=== PATIENT | female | born 1980 | race Caucasian/White ===

== ENCOUNTER 2024-03-08 01:01 | Outpatient (CLI) | payer SELFPAY | END 2024-03-08 23:59 | disposition critical access hospital (66) | LOC: EMS 01:01 | DX: R56.9 Unspecified convulsions (principal) | CPT/HCPCS: A0425; A0427 ==

== ENCOUNTER 2024-03-08 01:12 | Emergency (ER) | payer SELFPAY ==
[2024-03-08] MEDS: levETIRAcetam INJ 1,000 MG in SODIUM CHLORIDE 0.9% 100ML 100 ML IV STA (01:41)
[2024-03-08 01:47] LABS: BASOPHILS # (AUTO) 0.1 10^3/uL (0.0-0.1); BASOPHILS % (AUTO) 0.4 %; HCT - HEMATOCRIT 28.6 % (37.0-47.0); HGB - HEMOGLOBIN 8.5 g/dL (12.0-16.0); LYMPHOCYTES # (AUTO) 0.7 10^3/uL (1.5-3.5); LYMPHOCYTES % (AUTO) 5.5 %; MEAN CORPUSCULAR HEMOGLOBIN 28.2 pg (27.0-31.0); MEAN CORPUSCULAR HGB CONC 29.7 g/dL (32.0-36.0); MEAN PLATELET VOLUME 9.7 fL (7.9-10.8); MONOCYTES # (AUTO) 0.8 10^3/uL (0.0-1.0); MONOCYTES % (AUTO) 5.7 %; NEUTROPHILS # (AUTO) 11.3 10^3/uL (1.5-6.6); NEUTROPHILS % (AUTO) 84.6 %; PLT - PLATELET COUNT 401 10^3/uL (130-450); RED BLOOD COUNT 3.01 10^6/uL (4.20-5.40); RED CELL DISTRIBUTION WIDTH 19.9 % (12.0-15.0); WHITE BLOOD COUNT 13.4 x10^3/uL (4.8-10.8)
[2024-03-08 02:10] LABS: ETOH - ETHANOL < 10.0 mg/dL
[2024-03-08 02:12] LABS: HCG,QUALITATIVE BLOOD NEGATIVE
--- NOTE | 2024-03-08 02:23 | ED Physician Documentation ---
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 Patient reportedly has not been feeling well over the past few days and more fatigued. This evening her significant other and was helping her get up for a shower when she wanted to sit down on the toilet. For approximately 20 minutes he was asking questions to try and figure out how she was feeling and she was not really responding much to him. He stepped into the other room and then heard a noise in the bathroom. Patient was still sitting on the toilet but started having seizure activity. EMS was then called. EMS reported that they were told she was possibly 7 months but significant other states she is actually 3 months .En route to the emergency department patient had a second seizure episode lasting approximately 1 minute. EMS described some posturing involving the left arm as well as a left upper gaze but she did have generalized convulsions. She was given 5 mg of midazolam. She was not very responsive prior to the seizure episode. Patient primarily receives her care at the [facility]. 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 She was also seen in the [facility] ER on February 26 with neutropenia but was not admitted and was on Levaquin for 5 days. Per her significant other she has finished up her antibiotics. She was feeling unwell this week with cold-like symptoms so did miss a chemotherapy appointment. Review of Systems Unable to obtain: Unresponsive PD PAST MEDICAL HISTORY - Past Medical History Past Medical History: Yes Respiratory: Other Neuro: Migraines Other Past Medical History: sinus cancer, blind in right eye, [place] on right side - Past Surgical History Past Surgical History: Yes General: Gastric surgery /[employer]EMENT [employer]IST[employer]: section - Present Medications Home Medications: Ambulatory Orders Medication Instructions Recorded Confirmed Pantoprazole Sodium [Protonix] 40 mg PO DAILY 03/08/24 03/08/24 dexAMETHasone [Decadron] See Rx Instructions .ROUTE .COMPLEX 03/08/24 03/08/24 - Allergies Allergies/Adverse Reactions: Allergies Allergy/AdvReac Type Severity Reaction Status Date / Time No Known Drug Allergies Allergy Verified 03/08/24 01:15 - Social History Does the pt smoke?: No Smoking Status: Never smoker Does the pt drink ETOH?: No Does the pt have substance abuse?: No PD ED PE NORMAL - General General: Other (Unresponsive). No: Alert and oriented X 3 - HEENT HEENT: Atraumatic, PERRL (Sluggish but reactive), Other (Well-healed craniotomy incisions) - Cardiac Cardiac: RRR, Strong equal pulses - Respiratory Respiratory: No respiratory distress, Clear bilaterally - Abdomen Abdomen: Normal bowel sounds, Soft, Non tender, Non distended - Derm Derm: Warm and dry - Extremities Extremities: Other (PICC to R arm) - Neuro Neuro: No: Alert and oriented X 3 Results - Vitals Vitals: Vital Signs - 24 hr 03/08/24 03/08/24 03/08/24 01:16 01:30 02:00 Temperature 37.2 C Heart Rate 107 H 106 H 91 Respiratory 22 25 H 21 Rate Blood Pressure 109/73 125/84 H 112/75 O2 Saturation 98 95 97 03/08/24 03/08/24 03/08/24 02:30 03:00 03:30 Temperature Heart Rate 92 81 73 Respiratory 21 20 20 Rate Blood Pressure 118/91 H 109/74 113/74 O2 Saturation 98 98 99 03/08/24 03/08/24 03/08/24 04:00 04:30 05:00 Temperature Heart Rate 81 69 75 Respiratory 22 14 22 Rate Blood Pressure 126/64 119/77 123/76 O2 Saturation 99 99 97 03/08/24 03/08/24 05:30 06:00 Temperature Heart Rate 71 72 Respiratory 17 21 Rate Blood Pressure 126/82 H 110/98 H O2 Saturation 99 97 Oxygen O2 Source Room air - EKG (time done) 0135 EKG releavant findings:: EKG personally interpreted by author of this note. Relevant findings are: Rate 102, sinus tachycardia, no STEMI, QTc 433 - Labs Labs: Laboratory Tests 03/08/24 03/08/24 03/08/24 01:30 01:35 01:35 WBC 13.4 H RBC 3.01 L Hgb 8.5 L Hct 28.6 L MCV 95.0 MCH 28.2 MCHC 29.7 L RDW 19.9 H Plt Count 401 MPV 9.7 Neut # (Auto) 11.3 H Lymph # (Auto) 0.7 L [place] # (Auto) 0.8 Eos # (Auto) 0.0 Baso # (Auto) 0.1 Absolute Nucleated RBC 0.00 Band Neuts % (Manual) Not Reportable Abnorm Lymph % (Manual) Not Reportable Nucleated RBC % 0.0 Neutrophils # (Manual) Not Reportable Lymphocytes # (Manual) Not Reportable Monocytes # (Manual) Not Reportable Eosinophils # (Manual) Not Reportable Basophils # (Manual) Not Reportable Differential Comment MANUAL=AUTO DIFF Platelet Estimate INCREASED (>450,000) Platelet Morphology RARE GIANT PLATELETS Sodium 135 Potassium 3.6 Chloride 98 L Carbon Dioxide 16 L Anion Gap 21.0 H BUN 17 Creatinine 0.8 Estimated GFR (MDRD) 79 L Glucose 133 H POC Whole Bld Glucose Lactic Acid Calcium 9.6 Total Bilirubin 0.2 AST 12 ALT 14 Alkaline Phosphatase 78 Total Protein 6.5 Albumin 3.6 Globulin 2.9 Albumin/Globulin Ratio 1.2 Lipase 68 Serum HCG, Qual Beta HCG, Quant 1.8 Urine Color Urine Clarity Urine pH Ur Specific [place] Urine Protein Urine Glucose (UA) Urine Ketones Urine Occult Blood Urine Nitrite Urine Bilirubin Urine Urobilinogen Ur Leukocyte Esterase Ur Microscopic Review Urine Culture Comments Nasal Adenovirus (PCR) NOT DETECTED Nasal B. parapertussis DNA (PCR) NOT DETECTED Nasal Coronavir 229E PCR NOT DETECTED Nasal Coronavir HKU1 PCR NOT DETECTED Nasal Coronavir NL63 PCR NOT DETECTED Nasal Coronavir OC43 PCR NOT DETECTED Nasal Enterovir/Rhinovir PCR NOT DETECTED Nasal Influenza B PCR NOT DETECTED Nasal Influenza A PCR NOT DETECTED Nasal Parainfluen 1 PCR NOT DETECTED Nasal Parainfluen 2 PCR NOT DETECTED Nasal Parainfluen 3 PCR NOT DETECTED Nasal Parainfluen 4 PCR NOT DETECTED Nasal RSV (PCR) NOT DETECTED Nasal B.pertussis DNA PCR NOT DETECTED Nasal C.pneumoniae (PCR) NOT DETECTED [place] Human Metapneumo PCR NOT DETECTED Nasal M.pneumoniae (PCR) NOT DETECTED Nasal SARS-CoV-2 (PCR) DETECTED A Urine Opiates Screen Ur Buprenorphine Scrn Ur Oxycodone Screen Urine Methadone Screen Ur Barbiturates Screen Ur Tricyclics Screen Ur Phencyclidine Scrn Ur Amphetamine Screen U Methamphetamines Scrn U Benzodiazepines Scrn Urine Cocaine Screen U Cannabinoids Screen Ur Drug Screen Comment Ethyl Alcohol 03/08/24 03/08/24 03/08/24 01:35 01:35 01:41 WBC RBC Hgb Hct MCV MCH MCHC RDW Plt Count MPV Neut # (Auto) Lymph # (Auto) [place] # (Auto) Eos # (Auto) Baso # (Auto) Absolute Nucleated RBC Band Neuts % (Manual) Abnorm Lymph % (Manual) Nucleated RBC % Neutrophils # (Manual) Lymphocytes # (Manual) Monocytes # (Manual) Eosinophils # (Manual) Basophils # (Manual) Differential Comment Platelet Estimate Platelet Morphology Sodium Potassium Chloride Carbon Dioxide Anion Gap BUN Creatinine Estimated GFR (MDRD) Glucose POC Whole Bld Glucose 125 H Lactic Acid > 10.0 H* Calcium Total Bilirubin AST ALT Alkaline Phosphatase Total Protein Albumin Globulin Albumin/Globulin Ratio Lipase Serum HCG, Qual NEGATIVE Beta HCG, Quant Urine Color Urine Clarity Urine pH Ur Specific [place] Urine Protein Urine Glucose (UA) Urine Ketones Urine Occult Blood Urine Nitrite Urine Bilirubin Urine Urobilinogen Ur Leukocyte Esterase Ur Microscopic Review Urine Culture Comments Nasal Adenovirus (PCR) Nasal B. parapertussis DNA (PCR) Nasal Coronavir 229E PCR Nasal Coronavir HKU1 PCR Nasal Coronavir NL63 PCR Nasal Coronavir OC43 PCR Nasal Enterovir/Rhinovir PCR Nasal Influenza B PCR Nasal Influenza A PCR Nasal Parainfluen 1 PCR Nasal Parainfluen 2 PCR Nasal Parainfluen 3 PCR Nasal Parainfluen 4 PCR Nasal RSV (PCR) Nasal B.pertussis DNA PCR Nasal C.pneumoniae (PCR) [place] Human Metapneumo PCR Nasal M.pneumoniae (PCR) Nasal SARS-CoV-2 (PCR) Urine Opiates Screen Ur Buprenorphine Scrn Ur Oxycodone Screen Urine Methadone Screen Ur Barbiturates Screen Ur Tricyclics Screen Ur Phencyclidine Scrn Ur Amphetamine Screen U Methamphetamines Scrn U Benzodiazepines Scrn Urine Cocaine Screen U Cannabinoids Screen Ur Drug Screen Comment Ethyl Alcohol < 10.0 03/08/24 03/08/24 02:45 04:23 WBC RBC Hgb Hct MCV MCH MCHC RDW Plt Count MPV Neut # (Auto) Lymph # (Auto) [place] # (Auto) Eos # (Auto) Baso # (Auto) Absolute Nucleated RBC Band Neuts % (Manual) Abnorm Lymph % (Manual) Nucleated RBC % Neutrophils # (Manual) Lymphocytes # (Manual) Monocytes # (Manual) Eosinophils # (Manual) Basophils # (Manual) Differential Comment Platelet Estimate Platelet Morphology Sodium Potassium Chloride Carbon Dioxide Anion Gap BUN Creatinine Estimated GFR (MDRD) Glucose POC Whole Bld Glucose Lactic Acid 1.3 Calcium Total Bilirubin AST ALT Alkaline Phosphatase Total Protein Albumin Globulin Albumin/Globulin Ratio Lipase Serum HCG, Qual Beta HCG, Quant Urine Color YELLOW Urine Clarity CLEAR Urine pH 5.5 Ur Specific [place] 1.025 Urine Protein TRACE Urine Glucose (UA) NEGATIVE Urine Ketones NEGATIVE Urine Occult Blood NEGATIVE Urine Nitrite NEGATIVE Urine Bilirubin NEGATIVE Urine Urobilinogen 0.2 (NORMAL) Ur Leukocyte Esterase NEGATIVE Ur Microscopic Review NOT INDICATED Urine Culture Comments NOT INDICATED Nasal Adenovirus (PCR) Nasal B. parapertussis DNA (PCR) Nasal Coronavir 229E PCR Nasal Coronavir HKU1 PCR Nasal Coronavir NL63 PCR Nasal Coronavir OC43 PCR Nasal Enterovir/Rhinovir PCR Nasal Influenza B PCR Nasal Influenza A PCR Nasal Parainfluen 1 PCR Nasal Parainfluen 2 PCR Nasal Parainfluen 3 PCR Nasal Parainfluen 4 PCR Nasal RSV (PCR) Nasal B.pertussis DNA PCR Nasal C.pneumoniae (PCR) [place] Human Metapneumo PCR Nasal M.pneumoniae (PCR) Nasal SARS-CoV-2 (PCR) Urine Opiates Screen NEGATIVE Ur Buprenorphine Scrn NEGATIVE Ur Oxycodone Screen NEGATIVE Urine Methadone Screen NEGATIVE Ur Barbiturates Screen NEGATIVE Ur Tricyclics Screen NEGATIVE Ur Phencyclidine Scrn NEGATIVE Ur Amphetamine Screen NEGATIVE U Methamphetamines Scrn NEGATIVE U Benzodiazepines Scrn NEGATIVE Urine Cocaine Screen NEGATIVE U Cannabinoids Screen NEGATIVE Ur Drug Screen Comment CUTOFF CONC BELOW: Ethyl Alcohol PD Medical Decision Making - ED course Complexity details: reviewed results, re-evaluated patient, d/w patient ED course: Patient is a 43-year-old female with a complex history of sinonasal carcinoma presenting for new onset seizures. On arrival she is unresponsive. She did have a second seizure and route and received midazolam. Pupils are reactive. His CT head was obtained which shows bifrontal hypoattenuation's. There are no prior for comparison but patient has had recent imaging at the [facility] and [facility] where she receives most of her care with the CT read that sounds similar. CBC, chemistry, lactic, blood cultures, urine analysis, toxicology labs were obtained and reviewed. Lactic was also obtained and initial lactic was greater than 10 (lab was having difficulty in reporting this value). Patient was given a dose of Keppra 1 g as well as IV fluids. Repeat lactic is improved and back to normal limits.She has had cold-like symptoms recently and a respiratory swab was obtained and is positive for COVID. Chest x-ray reviewed and negative for pneumonia.Given complex medical history, [facility] was consulted and I spoke with medical oncology services who recommends transfer and they have graciously accepted. Patient has started to come around during her ED course and does speak a little bit and moves all extremities.She does appear to be protecting her airway. 0233 - Patient opening eyes to her name, moving all extremities, covered herself up with a blanket. Not responding to questions. 0318 - Patient has tested positive for COVID. Rechecked on patient. She is able to follow commands with squeezing hands on both sides. She is also able to speak a few words. Quickly wants to go back to sleep and covering herself with blankets. Departure - Departure Disposition: 02 Transfer Acute Care Hosp Clinical Impression: New onset seizure, COVID-19, Sinonasal undifferentiated carcinoma Condition: Fair Forms: PCP List Discharge Date/Time: 03/08/24 06:24
--- NOTE | 2024-03-08 02:26 | CT Report ---
PROCEDURE: Head WO INDICATIONS: seizure/lung cancer TECHNIQUE: Noncontrast 4.5 mm thick angled axial sections acquired from the foramen magnum to the vertex. For r adiation dose reduction, the following was used: automated exposure control, adjustment of mA and/or kV according to patient size. COMPARISON: None. FINDINGS: Image quality: Diagnostic CSF spaces: Basal cisterns are patent. No extra-axial fluid collections. Ventricles are normal in size and shape. Brain: There are bifrontal hypodensities. No hyperdense mass or intracranial hemorrhage. No definite acute infarct. No midline shift. Skull and face: Postsurgical craniotomy changes.. Calvarium and visualized facial bones are intact, w ithout suspicious lesions. Sinuses: Visualized sinuses and mastoids are clear. IMPRESSION: Bifrontal hypodensities likely reflecting vasogenic edema, possibly related to history of prior surgi kamlesh resection. No priors are available for comparison. No midline shift. No acute intracranial hemorr rina. Reviewed by: Tami Wallace MD, PhD on 03/08/2024 2:25 AM PDT Approved by: Tami Wallace MD, PhD on 03/08/2024 2:25 AM PDT Station ID: [id number]
[2024-03-08 02:27] LABS: ALBUMIN 3.6 g/dL (3.2-5.5); ALBUMIN/GLOBULIN RATIO 1.2 (1.0-2.2); BILIRUBIN,TOTAL 0.2 mg/dL (0.2-1.0); CALCIUM 9.6 mg/dL (8.5-10.3); CREATININE 0.8 mg/dL (0.6-1.3); POTASSIUM 3.6 mmol/L (3.5-4.5); TOTAL PROTEIN 6.5 g/dL (6.4-8.9)
[2024-03-08] MEDS: SODIUM CHLORIDE 0.9% 1,000 ML IV STA (02:44)
[2024-03-08 02:47] LABS: PLATELET ESTIMATE, MANUAL INCREASED (>450,000) (NORMAL); PLATELET MORPHOLOGY RARE GIANT PLATELETS (NORMAL)
[2024-03-08 02:48] LABS: DIFFERENTIAL COMMENT MANUAL=AUTO DIFF
[2024-03-08 02:53] LABS: BILIRUBIN,URINE NEGATIVE (NEGATIVE); GLUCOSE, URINE (UA) NEGATIVE (NEGATIVE); KETONES,URINE (UA) NEGATIVE (NEGATIVE); LEUKOCYTE ESTERASE, URINE NEGATIVE (NEGATIVE); NITRITE,URINE NEGATIVE (NEGATIVE); OCCULT BLOOD,URINE NEGATIVE (NEGATIVE); PH,URINE 5.5 PH (5.0-7.5); PROTEIN,URINE TRACE mg/dL (NEGATIVE); UROBILINOGEN,URINE 0.2 (NORMAL) E.U./dL (NORMAL)
[2024-03-08 03:06] LABS: CLARITY,URINE CLEAR (CLEAR)
[2024-03-08 03:11] LABS: CORONAVIRUS 229E-RESP PCR NOT DETECTED; CORONAVIRUS HKU1-RESP PCR NOT DETECTED; CORONAVIRUS NL63-RESP PCR NOT DETECTED; CORONAVIRUS OC43-RESP PCR NOT DETECTED
[2024-03-08 03:14] LABS: B. PARAPERTUSSIS- RESP PCR PAN NOT DETECTED; B. PERTUSSIS- RESP PCR PANEL NOT DETECTED; C. PNEUMONIAE- RESP PCR PANEL NOT DETECTED; HUMAN METAPNEUMOVIRUS NOT DETECTED; INFLUENZA A- RESP PCR PANEL NOT DETECTED; INFLUENZA B - RESP PCR PANEL NOT DETECTED; M. PNEUMONIAE- RESP PCR PANEL NOT DETECTED; PARAINFLUENZA VIRUS 1 NOT DETECTED; PARAINFLUENZA VIRUS 2 NOT DETECTED; PARAINFLUENZA VIRUS 3 NOT DETECTED; PARAINFLUENZA VIRUS 4 NOT DETECTED; RHINOVIRUS/ENTEROVIRUS NOT DETECTED; RSV- RESP PCR PANEL NOT DETECTED; SARS-CoV-2 -RESP PCR PANEL DETECTED
[2024-03-08 03:21] LABS: AMPHETAMINE SCREEN,URINE NEGATIVE (NEGATIVE); BARBITURATE SCREEN,UR NEGATIVE (NEGATIVE); BENZODIAZEPINES SCREEN, URINE NEGATIVE (NEGATIVE); BUPRENORPHINE SCREEN, URINE NEGATIVE (NEGATIVE); COCAINE SCREEN URINE NEGATIVE (NEGATIVE); METHADONE SCREEN, URINE NEGATIVE (NEGATIVE); METHAMPHETAMINES SCREEN, URINE NEGATIVE (NEGATIVE); OPIATE SCREEN, URINE NEGATIVE (NEGATIVE); OXYCODONE SCREEN, URINE NEGATIVE (NEGATIVE); THC CANNABINOID SCREEN, URINE NEGATIVE (NEGATIVE); TRICYCLIC ANTIDEPRESSANT,URINE NEGATIVE (NEGATIVE)
[2024-03-08 06:20] VITALS: BP 110/98; O2SAT 97
--- NOTE | 2024-03-08 08:11 | XRAY Report ---
PROCEDURE: Chest 1V INDICATIONS: cough/seizure TECHNIQUE: One view of the chest was acquired. COMPARISON: None. FINDINGS: Surgical changes and devices: Right IJ central venous catheter tip projects over the cavoatrial junc tion. Lungs and pleura: No pleural effusions or pneumothorax. Lungs are clear. Mediastinum: Mediastinal contours appear normal. Heart size is normal. Bones and chest wall: No suspicious bony lesions. Overlying soft tissues appear unremarkable. IMPRESSION: No acute cardiopulmonary process. Findings are concordant with preliminary interpretation provided by [facility]. Reviewed by: Gabe White MD on 03/08/2024 8:09 AM PDT Approved by: Gabe White MD on 03/08/2024 8:09 AM PDT Station ID: [id number]
== END 2024-03-08 06:24 | disposition short-term general hospital (02) ==
LOC: ED 01:12
DX: R56.9 Unspecified convulsions (principal); U07.1 COVID-19; C30.0 Malignant neoplasm of nasal cavity; Z79.899 Other long term (current) drug therapy
CPT/HCPCS: 36415; 80053; 80306; 81001; 81003; 82077; 83605; 83690; 84702; 84703; 85025; 87040; 87086; 87633; 93005; 96365; 99285

== ENCOUNTER 2024-03-08 06:30 | Outpatient (CLI) | payer SELFPAY | END 2024-03-08 23:59 | disposition short-term general hospital (02) | LOC: EMS 06:30 | DX: R56.9 Unspecified convulsions (principal) ==

== ENCOUNTER 2024-03-17 15:12 | Outpatient (CLI) | payer OTHER ==
[2024-03-17 15:22] LABS: HCT - HEMATOCRIT 24.9 % (37.0-47.0); HGB - HEMOGLOBIN 7.9 g/dL (12.0-16.0); LYMPHOCYTES # (AUTO) 0.2 10^3/uL (1.5-3.5); LYMPHOCYTES % (AUTO) 4.7 %; MEAN CORPUSCULAR HEMOGLOBIN 29.5 pg (27.0-31.0); MEAN CORPUSCULAR HGB CONC 31.7 g/dL (32.0-36.0); MEAN CORPUSCULAR VOLUME 92.9 fL (81.0-99.0); MEAN PLATELET VOLUME 10.7 fL (7.9-10.8); MONOCYTES % (AUTO) 1.2 %; NEUTROPHILS # (AUTO) 3.2 10^3/uL (1.5-6.6); NEUTROPHILS % (AUTO) 93.5 %; PLT - PLATELET COUNT 318 10^3/uL (130-450); RED BLOOD COUNT 2.68 10^6/uL (4.20-5.40); RED CELL DISTRIBUTION WIDTH 20.7 % (12.0-15.0); WHITE BLOOD COUNT 3.4 x10^3/uL (4.8-10.8)
[2024-03-17 15:29] LABS: SLIDE REVIEW? Indicated
[2024-03-17 15:44] LABS: ALBUMIN 3.5 g/dL (3.2-5.5); ALBUMIN/GLOBULIN RATIO 1.5 (1.0-2.2); BILIRUBIN,TOTAL 0.2 mg/dL (0.2-1.0); CALCIUM 8.7 mg/dL (8.5-10.3); CREATININE 0.6 mg/dL (0.6-1.3); PHOSPHORUS 2.5 mg/dL (2.5-5.0); PLATELET ESTIMATE, MANUAL NORMAL (130-450,000) (NORMAL); PLATELET MORPHOLOGY NORMAL APPEARANCE (NORMAL); POTASSIUM 4.3 mmol/L (3.5-4.5); TOTAL PROTEIN 5.9 g/dL (6.4-8.9)
== END 2024-03-17 15:13 | disposition home or self-care (01) ==
LOC: LAB.R 15:12
DX: E46 Unspecified protein-calorie malnutrition (principal)
CPT/HCPCS: 80053; 83721; 83735; 84100; 84134; 84478; 85025

== ENCOUNTER 2024-03-24 08:00 | Outpatient (CLI) | payer OTHER ==
[2024-03-24 16:50] LABS: HCT - HEMATOCRIT 22.8 % (37.0-47.0); HGB - HEMOGLOBIN 7.3 g/dL (12.0-16.0); LYMPHOCYTES # (AUTO) 0.2 10^3/uL (1.5-3.5); LYMPHOCYTES % (AUTO) 7.3 %; MEAN CORPUSCULAR HEMOGLOBIN 30.7 pg (27.0-31.0); MEAN CORPUSCULAR VOLUME 95.8 fL (81.0-99.0); MEAN PLATELET VOLUME 10.9 fL (7.9-10.8); MONOCYTES # (AUTO) 0.1 10^3/uL (0.0-1.0); MONOCYTES % (AUTO) 4.2 %; NEUTROPHILS # (AUTO) 2.9 10^3/uL (1.5-6.6); NEUTROPHILS % (AUTO) 88.2 %; NRBC ABSOLUTE COUNT (AUTO) 0.03 x10^3/uL; NUCLEATED RED BLOOD CELLS AUTO 0.9 /100WBC; PLT - PLATELET COUNT 153 10^3/uL (130-450); RED BLOOD COUNT 2.38 10^6/uL (4.20-5.40); WHITE BLOOD COUNT 3.3 x10^3/uL (4.8-10.8)
[2024-03-24 16:59] LABS: SLIDE REVIEW? Indicated
[2024-03-24 17:12] LABS: PLATELET ESTIMATE, MANUAL NORMAL (130-450,000) (NORMAL); PLATELET MORPHOLOGY NORMAL APPEARANCE (NORMAL)
[2024-03-24 17:30] LABS: ALBUMIN 3.7 g/dL (3.2-5.5); ALBUMIN/GLOBULIN RATIO 1.6 (1.0-2.2); BILIRUBIN,TOTAL 0.2 mg/dL (0.2-1.0); CALCIUM 8.8 mg/dL (8.5-10.3); CREATININE 0.5 mg/dL (0.6-1.3); MAGNESIUM 1.8 mg/dL (1.7-2.3); PHOSPHORUS 3.4 mg/dL (2.5-5.0); POTASSIUM 4.4 mmol/L (3.5-4.5)
== END 2024-03-24 23:59 | disposition home or self-care (01) ==
LOC: LAB.R 08:00
PROVIDERS: ATTEND Student in an Organized Health Care Education/Training Program
DX: E46 Unspecified protein-calorie malnutrition (principal)
CPT/HCPCS: 36415; 80053; 83735; 84100; 84134; 84478; 85025

== ENCOUNTER 2024-03-31 15:41 | Outpatient (CLI) | payer OTHER ==
[2024-03-31 15:47] LABS: BASOPHILS % (AUTO) 0.4 %; HCT - HEMATOCRIT 25.1 % (37.0-47.0); HGB - HEMOGLOBIN 7.9 g/dL (12.0-16.0); LYMPHOCYTES % (AUTO) 13.1 %; MEAN CORPUSCULAR HEMOGLOBIN 31.5 pg (27.0-31.0); MEAN CORPUSCULAR HGB CONC 31.5 g/dL (32.0-36.0); MEAN PLATELET VOLUME 10.6 fL (7.9-10.8); NEUTROPHILS % (AUTO) 39.2 %; PLT - PLATELET COUNT 271 10^3/uL (130-450); RED BLOOD COUNT 2.51 10^6/uL (4.20-5.40); RED CELL DISTRIBUTION WIDTH 25.5 % (12.0-15.0); WHITE BLOOD COUNT 2.4 x10^3/uL (4.8-10.8)
[2024-03-31 16:10] LABS: ALBUMIN 3.6 g/dL (3.2-5.5); ALBUMIN/GLOBULIN RATIO 1.6 (1.0-2.2); BILIRUBIN,TOTAL 0.2 mg/dL (0.2-1.0); CALCIUM 8.9 mg/dL (8.5-10.3); CREATININE 0.5 mg/dL (0.6-1.3); MAGNESIUM 1.9 mg/dL (1.7-2.3); PHOSPHORUS 3.3 mg/dL (2.5-5.0); POTASSIUM 4.6 mmol/L (3.5-4.5); TOTAL PROTEIN 5.8 g/dL (6.4-8.9)
[2024-03-31 16:21] LABS: ABNORMAL LYMPHS % (MANUAL) 0 %
[2024-03-31 16:23] LABS: BAND NEUTROPHILS % (MANUAL) 18 %; LYMPHOCYTES # (MANUAL) 0.6 10^3/uL (1.5-3.5); LYMPHOCYTES % (MANUAL) 24 %; METAMYELOCYTES % (MANUAL) 7 %; MONOCYTES # (MANUAL) 0.6 10^3/uL (0.0-1.0); MYELOCYTES % (MANUAL) 4 %; NUCLEATED RBC (MANUAL) 15 %
[2024-03-31 16:25] LABS: NEUTROPHILS # (MANUAL) 0.9 10^3/uL (1.5-6.6)
[2024-03-31 16:40] LABS: DIFFERENTIAL COMMENT MANUAL DIFFERENTIAL; PLATELET ESTIMATE, MANUAL NORMAL (130-450,000) (NORMAL); PLATELET MORPHOLOGY NORMAL APPEARANCE (NORMAL)
== END 2024-03-31 15:42 | disposition home or self-care (01) ==
LOC: LAB.R 15:41
PROVIDERS: ATTEND Student in an Organized Health Care Education/Training Program
DX: E46 Unspecified protein-calorie malnutrition (principal)
CPT/HCPCS: 80053; 83735; 84100; 84134; 84478; 85025

== ENCOUNTER 2024-04-07 08:00 | Outpatient (CLI) | payer OTHER ==
[2024-04-07 19:45] LABS: BASOPHILS % (AUTO) 0.2 %; HCT - HEMATOCRIT 25.8 % (37.0-47.0); HGB - HEMOGLOBIN 8.2 g/dL (12.0-16.0); LYMPHOCYTES % (AUTO) 6.2 %; MEAN CORPUSCULAR HEMOGLOBIN 31.9 pg (27.0-31.0); MEAN CORPUSCULAR HGB CONC 31.8 g/dL (32.0-36.0); MEAN CORPUSCULAR VOLUME 100.4 fL (81.0-99.0); MEAN PLATELET VOLUME 10.2 fL (7.9-10.8); MONOCYTES % (AUTO) 9.2 %; NEUTROPHILS % (AUTO) 74.4 %; PLT - PLATELET COUNT 246 10^3/uL (130-450); RED BLOOD COUNT 2.57 10^6/uL (4.20-5.40); RED CELL DISTRIBUTION WIDTH 25.9 % (12.0-15.0); WHITE BLOOD COUNT 10.1 x10^3/uL (4.8-10.8)
[2024-04-07 19:48] LABS: ABNORMAL LYMPHS % (MANUAL) 0 %
[2024-04-07 20:26] LABS: MAGNESIUM 1.9 mg/dL (1.7-2.3)
[2024-04-07 20:32] LABS: ALBUMIN 3.5 g/dL (3.2-5.5); ALBUMIN/GLOBULIN RATIO 1.8 (1.0-2.2); BILIRUBIN,TOTAL 0.2 mg/dL (0.2-1.0); CALCIUM 9.2 mg/dL (8.5-10.3); CREATININE 0.5 mg/dL (0.6-1.3); PHOSPHORUS 4.4 mg/dL (2.5-5.0); POTASSIUM 4.4 mmol/L (3.5-4.5); TOTAL PROTEIN 5.5 g/dL (6.4-8.9)
[2024-04-07 21:14] LABS: BAND NEUTROPHILS % (MANUAL) 2 %; LYMPHOCYTES # (MANUAL) 0.4 10^3/uL (1.5-3.5); LYMPHOCYTES % (MANUAL) 4 %; METAMYELOCYTES % (MANUAL) 3 %; MONOCYTES # (MANUAL) 0.9 10^3/uL (0.0-1.0); NEUTROPHILS # (MANUAL) 8.5 10^3/uL (1.5-6.6)
[2024-04-07 21:17] LABS: DIFFERENTIAL COMMENT MANUAL DIFFERENTIAL; PLATELET ESTIMATE, MANUAL NORMAL (130-450,000) (NORMAL); PLATELET MORPHOLOGY NORMAL APPEARANCE (NORMAL)
== END 2024-04-07 23:59 | disposition home or self-care (01) ==
LOC: LAB.R 08:00
PROVIDERS: ATTEND Surgery
DX: E46 Unspecified protein-calorie malnutrition (principal)
CPT/HCPCS: 80053; 83735; 84100; 84134; 84478; 85025

== ENCOUNTER 2024-04-16 14:48 | Outpatient (CLI) | payer OTHER ==
[2024-04-16 14:56] LABS: BASOPHILS % (AUTO) 0.1 %; HCT - HEMATOCRIT 30.1 % (37.0-47.0); HGB - HEMOGLOBIN 9.4 g/dL (12.0-16.0); LYMPHOCYTES # (AUTO) 0.4 10^3/uL (1.5-3.5); LYMPHOCYTES % (AUTO) 2.9 %; MEAN CORPUSCULAR HEMOGLOBIN 32.5 pg (27.0-31.0); MEAN CORPUSCULAR HGB CONC 31.2 g/dL (32.0-36.0); MEAN CORPUSCULAR VOLUME 104.2 fL (81.0-99.0); MEAN PLATELET VOLUME 10.3 fL (7.9-10.8); MONOCYTES # (AUTO) 0.7 10^3/uL (0.0-1.0); NEUTROPHILS # (AUTO) 12.6 10^3/uL (1.5-6.6); NEUTROPHILS % (AUTO) 89.9 %; NRBC ABSOLUTE COUNT (AUTO) 0.04 x10^3/uL; NUCLEATED RED BLOOD CELLS AUTO 0.3 /100WBC; PLT - PLATELET COUNT 308 10^3/uL (130-450); RED BLOOD COUNT 2.89 10^6/uL (4.20-5.40); RED CELL DISTRIBUTION WIDTH 24.7 % (12.0-15.0)
[2024-04-16 16:19] LABS: MAGNESIUM 1.9 mg/dL (1.7-2.3); PHOSPHORUS 3.5 mg/dL (2.5-5.0)
[2024-04-16 16:21] LABS: PLATELET ESTIMATE, MANUAL NORMAL (130-450,000) (NORMAL); PLATELET MORPHOLOGY NORMAL APPEARANCE (NORMAL); SLIDE REVIEW? Indicated
[2024-04-16 16:23] LABS: ALBUMIN 3.8 g/dL (3.2-5.5); ALBUMIN/GLOBULIN RATIO 1.5 (1.0-2.2); BILIRUBIN,TOTAL 0.2 mg/dL (0.2-1.0); CALCIUM 8.9 mg/dL (8.5-10.3); CREATININE 0.5 mg/dL (0.6-1.3); POTASSIUM 4.3 mmol/L (3.5-4.5); TOTAL PROTEIN 6.4 g/dL (6.4-8.9)
== END 2024-04-16 14:49 | disposition home or self-care (01) ==
LOC: LAB.R 14:48
PROVIDERS: ATTEND Student in an Organized Health Care Education/Training Program
DX: E46 Unspecified protein-calorie malnutrition (principal)
CPT/HCPCS: 80053; 83735; 84100; 84134; 84478; 85025